=== PATIENT | female | born 1960 | race Caucasian/White ===

== ENCOUNTER 2016-06-14 17:06 | Observation (INO) | payer MEDICAID, OTHER ==
--- NOTE | 2016-06-14 17:40 | ED PDOC ---
Arrival/HPI - General Chief Complaint: Shortness Of Breath Time Seen by Provider: 06/14/16 17:38 Historian: Patient - History of Present Illness Narrative History of Present Illness (Text): 06/14/16 17:38 56 year old female presents to the emergency department complaining of period of inability to speak for 2 hours, 5 days ago, that resolved spontaneously. Patient states she woke up feeling tired. Now complaining of shortness of breath. Time/Duration: < week Symptom Onset: Gradual Symptom Course: Unchanged Modifying Factors (Text): None Associated Symptoms (Text): None Past Medical History - Provider Review Nursing Documentation Reviewed: Yes - Infectious Disease Hx of Infectious Diseases: None - Reproductive Menopause: Yes - Cardiac Hx Cardiac Disorders: No - Pulmonary Hx Respiratory Disorders: No - Neurological Hx Neurological Disorder: No - HEENT Hx HEENT Disorder: No - Renal Hx Renal Disorder: No - Endocrine/Metabolic Hx Endocrine Disorders: Yes (imparied glucose tolerance) - Hematological/Oncological Hx Blood Disorders: Yes Hx Cancer: Yes (RT.BREAST) - Integumentary Hx Dermatological Disorder: No - Musculoskeletal/Rheumatological Hx Musculoskeletal Disorders: No - Gastrointestinal Hx Gastrointestinal Disorders: Yes Hx Gastroesophageal Reflux: Yes Other/Comment: diarrhea - Genitourinary/Gynecological Hx Genitourinary Disorders: No - Psychiatric Hx Psychophysiologic Disorder: No - Surgical History Hx Appendectomy: Yes Hx Breast Biopsy: Yes (right) Hx Mastectomy: Yes (MODIFIED RADICAL WITH RECONSTRUCTION) Hx Vascular Access Device: Yes (LIFE PORT) - Anesthesia Hx Anesthesia: Yes Hx Anesthesia Reactions: No Hx Malignant Hyperthermia: No Family/Social History - Physician Review Nursing Documentation Reviewed: Yes Family/Social History: Unknown Family HX Smoking Status: Never Smoked Hx Alcohol Use: No Allergies/Home Meds Allergies/Adverse Reactions: Allergies No Known Allergies Allergy (Verified 06/14/16 17:23) Home Medications: Home Meds Medication Instructions Recorded Confirmed Aspirin [Aspirin Chewable] 81 mg PO DAILY 06/14/16 06/14/16 Calcium/Vitamin D [Oyster Shell 5,000 unit PO DAILY 06/14/16 06/14/16 Calcium/Vitamin D 500 mg-200 IU] Famotidine [Pepcid] 40 mg PO DAILY 06/14/16 06/14/16 Mv,Shorty,Min/Iron/Folic Acid/Lut 1 tab PO DAILY 06/14/16 06/14/16 [Complete Multi Tablet] Omeprazole 40 mg PO DAILY 06/14/16 06/14/16 Tamoxifen [Nolvadex] 10 mg PO DAILY 06/14/16 06/14/16 Venlafaxine [Effexor] 37.5 mg PO DAILY 06/14/16 06/14/16 Review of Systems - Physician Review All systems were reviewed & negative as marked: Yes Physical Exam - Physical Exam Narrative Physical Exam (Text): - Review of Systems Constitutional: Normal. absent: Fatigue, Weight Change, Fevers Eyes: Normal ENT: Normal Respiratory: SOB absent: Cough, Sputum Cardiovascular: Normal absent: Chest pain, Palpitations, Syncope Gastrointestinal: Normal absent: Abdominal pain, Diarrhea, Nausea, Vomiting Genitourinary: Normal. absent: Dysuria, Frequency, Hematuria Musculoskeletal: Normal. absent: Arthralgias, Back Pain, Neck Pain Skin: Normal Neurological: Period of inability to speak which has resolved absent: Focal Weakness Endocrine: Normal Hemo/Lymphatic: Normal Psychiatric: Normal - Physical exam Patient appears age appropriate, speaking full sentences without difficulty - Systems Exam Head: Present: Atraumatic, Normocephalic Pupils: Present: PERRL Extraocular Muscles: Present: EOMI Conjunctiva: Present: Normal Mouth: Present: Moist Mucous Membranes Neck: Present: Normal Range of Motion. No: MIDLINE TENDERNESS, Paraspinal Tenderness Respiratory/Chest: Present: Clear to Auscultation, Good Air Exchange. No: Respiratory Distress, Accessory Muscle Use, Tachypnic Cardiovascular: Present: Regular Rate and Rhythm, Normal S1, S2, Peripheral Pulses Present. No: Murmurs Abdomen: Present: Normal Bowel Sounds, No: Tenderness, Peritoneal Signs, Rebound, Guarding, Distention Back: Present: Normal Inspection. No: Midline Tenderness, Paraspinal Tenderness Upper Extremity: Present: Normal Inspection. No: Cyanosis, Edema Lower Extremity: Present: Normal Inspection. No: Edema Neurological: Present: GCS=15, Speech Normal, cranial nerves II through XII fully intact with no cerebellar abnormality, neuro-sensory fully intact. No focal neurological deficits. Skin: Present: Warm, Dry, Normal Color. No: Rashes Lymphatic: Present: OX3, NI, NC Psychiatric: Present: Alert, Oriented x 3, Normal Insight, Normal Concentration . Vital Signs Reviewed: Yes Vital Signs Temp Pulse Resp BP Pulse Ox 06/14/16 21:35 88 23 134/94 H 100 06/14/16 19:36 90 18 144/82 99 06/14/16 19:07 87 16 144/83 99 06/14/16 18:49 20 99 06/14/16 17:07 97.5 F L 91 H 14 156/82 H 99 Temperature: Afebrile Blood Pressure: Normal Pulse: Regular Respiratory Rate: Normal Appearance: Positive for: Well-Appearing, Non-Toxic, Comfortable Pain Distress: None Mental Status: Positive for: Alert and Oriented X 3 Medical Decision Making ED Course and Treatment: Impression: 56-year-old female with inability speak over the weekend which has fully resolved, now she has no focal neurological deficits. Patient also states that she's been having worsening shortness of breath and dyspnea and exertion for the last few days. Patient has a history of breast CA, states that she has gone through chemotherapy and radiation. Differential Diagnosis included but are not limited to: TIA versus CHF versus PE versus pneumonia Plan: Labs, imaging Progress Notes: 06/14/16 19:50 Patient in no distress, ambulating around the emergency department without difficulty EKG shows normal sinus, 100 bpm, no ST segment elevations normal intervals. Interpreted by me. Chest xray interpreted by ED physician shows no pneumothorax, no cardiomegaly, no infiltrates EXAM: CT Angiography Chest With Intravenous Contrast IMPRESSION: No pulmonary embolism is identified. No acute findings. Dictated and Authenticated by: Stef Dao MD 06/14/2016 9:08 PM Eastern Time ([place] & [place]) EXAM: CT Head Without Intravenous Contrast IMPRESSION: No CT evidence of acute intracranial abnormality. Details as above. Dictated and Authenticated by: Christina Grady MD 06/14/2016 9:18 PM Eastern Time ([place] & [place]) 06/14/16 22:[address] Roblero, recommends inpatient w/u dw Dr. Noguera, accepted pt to his service pt in no distress at this time. aware of and agrees with plan pt has no focal neurological deficits and denies any SOB/BAUTISTA/CP at this time - Lab Interpretations Lab Results: 06/14/16 18:05 06/14/16 18:05 Lab Results 06/14/16 18:05: Sodium 138, Potassium 3.8, Chloride 107, Carbon Dioxide 23, Anion Gap 12, BUN 11, Creatinine 0.5, Est GFR ( Amer) > 60, Est GFR (Non- Af Amer) > 60, Random Glucose 128 H, Calcium 9.0, Total Bilirubin 0.6, AST 28, ALT 47, Alkaline Phosphatase 111, Lactate Dehydrogenase 631, Total Creatine Kinase 59, Troponin I < 0.01, NT-Pro-B Natriuret Pep 81.0, Total Protein 7.4, Albumin 4.0, Globulin 3.4, Albumin/Globulin Ratio 1.2 06/14/16 18:05: PT 12.1 H, INR 1.12 H, APTT 25.9 06/14/16 18:05: WBC 7.8, RBC 4.33, Hgb 12.8, Hct 37.0, MCV 85.5, MCH 29.6, MCHC 34.6, RDW 12.9, Plt Count 191, MPV 10.5, Gran % 59.5, Lymph % (Auto) 32.5, Stoddard % (Auto) 6.4 H, Eos % (Auto) 1.3 L, Baso % (Auto) 0.3, Gran # 4.64, Lymph # 2.5 , Stoddard # 0.5, Eos # 0.1, Baso # 0.02 - RAD Interpretation Radiology Orders: 06/14/16 18:34 ANGIO CHEST PE PROTOCOL [CT] Stat CHEST PORTABLE [RAD] Stat 06/14/16 19:49 HEAD W/O CONTRAST [CT] Stat - Medication Orders Current Medication Orders: Discontinued Medications Iohexol (Omnipaque 350 100 Ml) Confirm Administered Dose 350 mg .ROUTE .K-MED ONE Stop: 06/14/16 19:22 - Scribe Statement The provider has reviewed the documentation as recorded by the Clare Damon Provider Scribe Attestation: All medical record entries made by the Richiibpadma were at my direction and personally dictated by me. I have reviewed the chart and agree that the record accurately reflects my personal performance of the history, physical exam, medical decision making, and the department course for this patient. I have also personally directed, reviewed, and agree with the discharge instructions and disposition. Disposition/Present on Arrival - Present on Arrival Any Indicators Present on Arrival: No History of DVT/PE: No History of Uncontrolled Diabetes: No Urinary Catheter: No History of Decub. Ulcer: No History Surgical Site Infection Following: None - Disposition Have Diagnosis and Disposition been Completed?: Yes Diagnosis: Dyspnea Disposition: HOSPITALIZED Disposition Time: 22:26 Patient Plan: Observation Condition: STABLE Referrals: Bart Noguera MD [Primary Care Provider] - Follow up with primary
[2016-06-14] MEDS ORDERED: Sodium Chloride 0.9% 1,000 ML IV STA (18:48)
[2016-06-14 18:58] LABS: ADD MANUAL DIFF? NO
[2016-06-14 19:10] LABS: BASO # 0.02 K/mm3 (0.0-2.0); BASO % 0.3 % (0.0-3.0); EOS # 0.1 (0.0-0.7); EOS % 1.3 % (1.5-5.0); GRAN # 4.64 (1.4-6.5); GRAN % 59.5 % (50.0-68.0); LYMPH # 2.5 (1.2-3.4); LYMPH % 32.5 % (22.0-35.0); MEAN CELL VOLUME 85.5 fL (80.0-105.0); MEAN CORPUSCULAR HEMOGLOBIN 29.6 pg (25.0-35.0); MEAN CORPUSCULAR HGB CONC 34.6 g/dl (31.0-37.0); MEAN PLATELET VOLUME 10.5 fl (7.0-11.0); MONO # 0.5 (0.1-0.6); MONO % 6.4 % (1.0-6.0); PLATELET COUNT 191 10^3/uL (120.0-450.0); RED CELL DISTRIBUTION WIDTH 12.9 % (11.5-14.5); WHITE BLOOD COUNT 7.8 10^3/ul (4.5-11.0)
[2016-06-14 19:16] LABS: ALB/GLOB RATIO 1.2 (1.1-1.8); ALKALINE PHOSPHATASE 111 U/L (38-133); ALT/SGPT 47 U/L (7-56); AST/SGOT 28 U/L (15-39); BILIRUBIN,TOTAL 0.6 mg/dL (0.2-1.3); BLOOD UREA NITROGEN 11 mg/dL (7-21); CARBON DIOXIDE 23 mmol/L (21-33); CHLORIDE 107 mmol/L (98-107); GFR AFRICAN-AMERICAN > 60; GLUCOSE,RANDOM 128 mg/dL (70-110); INR 1.12 (0.93-1.08); PARTIAL THROMBOPLASTIN TIME 25.9 Seconds (23.7-30.8); POTASSIUM 3.8 mmol/L (3.6-5.0); SODIUM 138 mmol/L (132-148); TOTAL PROTEIN 7.4 g/dL (5.8-8.3)
[2016-06-14] MEDS ORDERED: Iohexol 350 MG/100 ML VIAL ONE ×2 (19:21→23:41)
[2016-06-14 19:29] LABS: TROPONIN I < 0.01 ng/mL
--- NOTE | 2016-06-14 21:18 | CT ---
EXAM: CT Head Without Intravenous Contrast CLINICAL HISTORY: 56 years old, female; Pain; Headache; Headache not specified; Additional info: TIA TECHNIQUE: Axial computed tomography images of the head/brain without intravenous contrast. This CT exam was performed using one or more of the following dose reduction techniques: automated exposure control, adjustment of the mA and/or kV according to patient size, and/or use of iterative reconstruction technique. COMPARISON: No relevant prior studies available. FINDINGS: Brain: Evidence of atrophy. No hemorrhage. No significant white matter disease. No edema. Ventricles: No hydrocephalus. Bones: Skull is intact. Sinuses: No acute sinusitis. Mastoid air cells: No mastoid effusion. IMPRESSION: No CT evidence of acute intracranial abnormality. Details as above.
[2016-06-15 01:14] VITALS: BMI 36.3
[2016-06-15 07:23] VITALS: BP 117/80; PULSE 80; RESP 18; TEMP 98; O2SAT 98
--- NOTE | 2016-06-15 07:47 | CT ---
PROCEDURE: CT Chest with contrast (Pulmonary Angiogram) HISTORY: r/o PE COMPARISON: None available. TECHNIQUE: Axial computed tomography images were obtained of the chest in the pulmonary arterial phase of enhancement. Coronal and sagittal reformatted images were created and reviewed. Intravenous contrast dose: 100 mL Omnipaque 350 Radiation dose: Total exam DLP = 758.64 mGy-cm. This CT exam was performed using one or more of the following dose reduction techniques: Automated exposure control, adjustment of the mA and/or kV according to patient size, and/or use of iterative reconstruction technique. FINDINGS: PULMONARY ARTERIES: There are no central filling defects in the pulmonary arteries to suggest acute pulmonary embolism. AORTA: Normal in caliber. No thoracic aortic aneurysm or aortic dissection. LUNGS: The lungs are clear. No nodule, mass or pulmonary consolidation. PLEURAL SPACES: All Unremarkable. No effusion orpneumothorax. HEART: No cardiomegaly. No significant pericardial effusion. LYMPH NODES: No lymphadenopathy. BONES, CHEST WALL: Within normal limits for the patient's age. No fracture or destructive lesion OTHER FINDINGS: Fatty infiltration of the liver. Right breast saline implant. IMPRESSION: No evidence of acute pulmonary embolism. Clear lungs. A preliminary report was provided by [facility].
--- NOTE | 2016-06-15 08:44 | RAD ---
HISTORY: Shortness of breath COMPARISON: No prior. FINDINGS: The left MediPort terminates at the cavoatrial junction. LUNGS: The lungs are well inflated and clear. PLEURA: No significant pleural effusion identified, no pneumothorax apparent. CARDIOVASCULAR: Normal. OSSEOUS STRUCTURES: No significant abnormalities. VISUALIZED UPPER ABDOMEN: Normal. OTHER FINDINGS: None. IMPRESSION: No active pulmonary disease.
[2016-06-15] MEDS ORDERED: IRON PO SCH (10:00)
[2016-06-15] MEDS ORDERED: Pantoprazole 40 mg EC Tab PO SCH (10:00)
[2016-06-15] MEDS ORDERED: CALCIUM PO SCH (10:00)
[2016-06-15] MEDS ORDERED: VITAMIN D PO SCH (10:00)
[2016-06-15] MEDS ORDERED: LUT PO SCH (10:00)
[2016-06-15] MEDS ORDERED: MV CAL MIN PO SCH (10:00)
[2016-06-15] MEDS ORDERED: [UNRECOGNIZED DRUG - OTHER] PO SCH (10:00)
[2016-06-15] MEDS ORDERED: FOLIC ACID PO SCH (10:00)
--- NOTE | 2016-06-15 11:14 | CON ---
DATE: 06/15/2016 REFERRING PHYSICIAN: Dr. Noguera. REASON FOR CONSULT: Shortness of breath. HISTORY OF PRESENT ILLNESS: This is a -rzud-isy female with a history of breast cancer, mastect latoya, radiation and chemotherapy in the past, had symptom of epigastric discomfort and pain on a malachi n inhibitor. Yesterday, comes in because again had symptom of shortness of breath, and epigastric di scomfort. No vomiting, no hematuria, no diarrhea, no leg pain or leg swelling. PAST MEDICAL HISTORY: Breast cancer, history of gastroesophageal reflux disease, has a Port-A-Cath c atheter. ALLERGIES: None known. SOCIAL HISTORY: Nonsmoker, nondrinker. MEDICATIONS: He is on aspirin, vitamin D and calcium, Pepcid 40 mg daily, Protonix 40 mg daily, tamo xifen is at 0 mg daily, and Effexor 37.5 mg daily. FAMILY HISTORY: Positive for colon cancer, lung cancer, hypertension, and diabetes. MEDICATIONS AT HOSPITAL: Nothing is added so far. REVIEW OF SYSTEMS: No headache, no rhinitis. Has some symptom of epigastric discomfort. Dr. Noguera started on proton inhibitor as an outpatient. When she was with her family yesterday has some chest nonspecific discomfort with shortness of breath, came to the Emergency Room. At present, there is n o nausea, no vomiting, no diarrhea, no leg pain or leg swelling. PHYSICAL EXAMINATION: GENERAL: Lying in the bed in no acute distress. VITAL SIGNS: Temp is 98, heart rate is 80, respiratory rate is 20, blood pressure 117/80, pulse ox 9 8% on room air. HEENT: Moist mucous membrane. Crowded airway. NECK: Supple. No JVD. LUNGS: Has a fair airflow with few rhonchi. HEART: S1, S2. ABDOMEN: Soft, mild epigastric discomfort on palpation. EXTREMITIES: There is no edema. NEUROLOGIC: Awake, alert, follows simple commands. LABORATORY DATA: Shows hemoglobin 12.8, hematocrit 37.7, WBC 7.8, platelet is 191. INR 1.12, PTT is 26. Sodium 138, potassium 2.8, chloride 107, bicarbonate 23, BUN 11, creatinine 0.5, glucose 128, c alcium 8.0, total bilirubin 0.6, AST 28, ALT 47, alkaline phos is 111. Troponin is less than 0.01. Albumin is 4.0. Had a CT of the chest done, which is negative for pulmonary embolism and clear lungs . Also had a CT scan of the head done in the Emergency Room, which shows no evidence of acute abnorm ality. IMPRESSION AND PLAN: History of breast cancer requiring radiation and chemotherapy in the past. May have a gastritis, gastroesophageal reflux disease. Agree with Dr. Noguera. We will continue Protoni x. Keep head elevated at 45 degrees. May add Carafate. Gastric prophylaxis. SCD to lower extremit y. Being evaluated by cardiology, EEG, and neurology. Thank you. Will follow with you. Jacquelin Rust MD cc: [id number] TT: 06/15/2016 11:13:37 Confirmation # [id number] Dictation # [id number] jn
--- NOTE | 2016-06-15 13:49 | CON ---
DATE: 06/15/2016 The patient is in room 365, bed 1. REASON FOR CONSULTATION: Shortness of breath. HISTORY OF PRESENT ILLNESS: The patient is a 56-year-old female admitted with a history that 5 days ago had a period that she was not able to speak for about 2 hours, which resolved spontaneously. Now, patient states that since last 2 days, she has shortness of breath. She describes shortness of breath as like a deep sigh. She says on exertion, she does not have any chest pain or shortness of breath. She said once in a while, she has to take a very deep breath like deep sigh and that is her complaint. She has known case of cancer of breast with mastectomy and has been getting chemotherapy and radiation. Denies any other history of medical disease. She has a history of epigastric distress, for which she takes omeprazole once a day. PAST MEDICAL HISTORY: CA of the breast, Port-A-Cath insertion, appendectomy, surgery for CA of the breast, mastectomy. PERSONAL HISTORY: Denies smoking, denies drinking. ALLERGIES: Denies any allergies. MEDICATIONS AT HOME: The patient is on tamoxifen, omeprazole, aspirin vitamin D. FAMILY HISTORY: Positive for diabetes, hypertension and malignancy. REVIEW OF SYSTEMS: All the systems reviewed, positives mentioned in the history , others were negative. PHYSICAL EXAMINATION: VITAL SIGNS: Blood pressure 117/80, respirations 18, pulse 80, temperature 98.0. HEAD: Normocephalic. EYES: Pupils normal. Conjunctivae normal. NOSE AND THROAT: Normal. NECK: JVP low. Carotid equal. THORAX: AP diameter normal. LUNGS: Clear. CARDIOVASCULAR: S1, S2. ABDOMEN: Soft, no tenderness, no organomegaly. EXTREMITIES: No clubbing, no cyanosis. LABORATORIES: WBC 7.8, hemoglobin 12.8, hematocrit 37.0, platelets 191. Sodium 138, potassium 3.8, BUN 11, creatinine 0.5. Total bilirubin, AST, ALT normal. Troponin less than 0.01. Chest x-ray: Lungs are clear, Port-A-Cath present. EKG showed regular sinus rhythm, Q and C can be a normal variant. CT of the chest is also negative, no evidence of pulmonary embolism. CAT scan of head is also normal. DIAGNOSES: Shortness of breath, complaints very nonspecific, gastroesophageal reflux disease, history of cancer breast, mastectomy followed by chemo and radiation therapy, episode of aphasia 5 days ago, relieved spontaneously. PLAN: Neurology consult has been already requested to evaluate her episode of aphasia. From cardiac point of view, patient's symptoms are very nonspecific about shortness of breath, so patient wants to go home today. She is supposed to go to [place] tomorrow and she wants to go home today and she promised that she will do an echo and a stress test as outpatient and she will see Dr. Noguera in his office for echo and she will come to our office and make arrangements for stress test. In the meantime, neurology evaluation is pending. I also advised patient to lose weight. Continue aspirin 81 mg p.o. daily. The patient is on tamoxifen 10 mg p.o. daily, Pepcid 40 mg p.o. daily. The patient is also on Protonix 40 daily, Effexor 37.5 mg p.o. daily. We will follow with you and continue present therapy. Jacquelin Tellez MD cc: [phone] TT: 06/15/2016 13:49:11 Confirmation # [id number] Dictation # [id number] en MTDD
--- NOTE | 2016-06-15 17:16 | CARD ---
APPROVED REPORT EKG Measurement Heart [id number] <Conclusion> Normal sinus rhythm Normal ECG
--- NOTE | 2016-06-15 21:47 | CON ---
DATE: 06/15/2016 The patient is in room 365, bed 1. REASON FOR CONSULTATION: The patient with stage II carcinoma of the breast, status post mastectomy, status post chemo and radiation for an ER/OR positive, stage II breast cancer, had radiation for more than ____ positive. 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 No nausea, no vomiting, no diarrhea, no leg pain, no neck swelling. PAST MEDICAL HISTORY: Significant for stage II carcinoma of the breast, history of gastroesophageal reflux, has a port on the right chest wall. ALLERGIES: No allergies. SOCIAL HISTORY: The patient is a nonsmoker, nondrinker. CURRENT MEDICATIONS: Reviewed. She is on aspirin, vitamin D, calcium, Pepcid 40 daily, Protonix 40 daily, tamoxifen 10 mg b.i.d., and Effexor 37.5 mg daily for swelling. FAMILY HISTORY: Positive for colon cancer, lung cancer, hypertension and diabetes. REVIEW OF SYSTEMS: Denies any history of headaches, rhinitis. Has symptoms of epigastric discomfort . She has seen Dr. Noguera recently who started her on a PPI in addition to the Pepcid. When she brendon t with the family yesterday, patient had some anxiety issues as well and some nonspecific chest disco mfort, could not breathe, shortness of breath, came to the Emergency Room after talking to me and adv ised her to go to the ER because my concern was that patient could have a PE while on tamoxifen postc hemotherapy. No nausea, no vomiting, no diarrhea. No neck pain. PHYSICAL EXAMINATION: GENERAL: The patient is examined in the bed, lying in bed, in no acute distress. HEENT: Head is normocephalic, atraumatic. Conjunctivae pale. Sclerae are anicteric. Pupils are eq ually reactive to light and accommodation. NECK: Reveals no adenopathy. No jugular venous distention noted. LUNGS: Clear to percussion and auscultation. HEART: Reveals S1 and S2 to be normal. No gallop or murmur is heard. The patient is status post ma stectomy with reconstruction ____ reconstruction on the right breast is still pending for creation of the ____ nipple. Left breast is unremarkable. ABDOMEN: Soft, nontender. Liver and spleen are not palpable. No other masses are noted. No reboun d, rigidity or guarding is noted. EXTREMITIES: No cyanosis, clubbing, or edema. NEUROLOGIC: Higher functions are normal. No focal deficits are noted. LABORATORY DATA: Reveals hemoglobin of 12.8, hematocrit 37, platelet count 191. INR is 1.2. Electro lytes unremarkable. Troponin is 0.01. Albumin is 4. The patient had a CT of the chest with contras t, like a CT angio which was negative for pulmonary embolism. CT of the head was also done in the Em ergency Room because there were a few moments where she could not speak and showed no evidence of any acute abnormalities. ASSESSMENT NOTES AND PLAN: Etiology of the shortness of breath could be gastroesophageal reflux dise ase, it could be anxiety. Workup at this point is negative. I told her to resume the tamoxifen, sta y on the aspirin, continue the PPI and the H2 inhibitors and to follow up as an outpatient. I discus sed the case with Dr. Noguera as well. Routine post exam instructions have been given to the patient. The patient and mom are leaving for [place] tomorrow. I told her to keep in touch. They will b e back to see us in about 2 weeks. The patient and her mom have family out there in [place] and t he trip was planned quite some time ahead. Nadege Roblero MD cc: [id number] TT: 06/15/2016 21:47:17 Confirmation # [id number] Dictation # [id number]
--- NOTE | 2016-06-16 05:14 | HP ---
The patient is a 56-year-old female who came in with a period of . HISTORY OF PRESENT ILLNESS: This is a 56-year-old female with history of breast cancer treated with chemoradiation and had implants. She came in to the Department of the Emergency Room because history of inability to talk for 2 hours, 5 days ago that resolved spontaneously and now she is feeling tire d and she complained of short of breath and says has some short of breath. No chest pain. PAST MEDICAL HISTORY: As I mentioned above, history of breast CA, treated surgically radiation, chem o and breast implants, obesity. ALLERGIES: No known allergies. SOCIAL HISTORY: She never smoked. No drinking, no illicit drugs. REVIEW OF SYSTEMS: She complained of knee pain sometimes. HOME MEDICATIONS: She does takes calcium and vitamin D, aspirin, Effexor, she takes tamoxifen, multi vitamins and Pepcid. PHYSICAL EXAMINATION: VITAL SIGNS: Stable. Temperature 98, heart rate 80, blood pressure is 117/80, respirations 18, satu ration 98% on room air. HEAD AND NECK: Normal. No JVD, no thyromegaly. CHEST: Clear, good entry. CARDIAC: First and second sounds are normal. ABDOMEN: Soft, nontender. EXTREMITIES: No edema. NEUROLOGIC: Normal. LABORATORY DATA: PT/INR 12.1, INR 1.12, PTT 25.9. The patient also had CBC with white count 7.8, he moglobin 12.8, hematocrit 37, and platelets 191. Chemistry: Sodium 138, potassium 3.8, chloride 107 , bicarbonate 23, BUN 18, creatinine 0.5, glucose 128. Liver function test is normal. Troponin is n egative. Albumin and globulin normal. CPK is normal. Troponin is negative. The patient had a CT o f the head, which was negative. The patient had a CT chest angiogram which was negative for PE. IMPRESSION AND PLAN: A 56-year-old female who came in with chest discomfort, history of period of in ability to talk, will admit the patient for observation, get a neuro consult with Dr. Shore, will ge t pulmonary consult with Dr. Rust, and cardiology consult with Dr. Krause. We will follow their reina mmendations and the patient advised also to continue aspirin every day. Continue Pepcid 40 mg daily. We will discuss with oncology, Dr. Roblero, the case. If the patient is clinically stable and eval uated by specialist, she may need to go home. The patient wants to travel to [place] with her par ents. She has a ticket for tomorrow and she has to leave. If okay with the specialist, we will disc harge the patient if cleared by them. Bart Noguera MD cc: [id number] TT: 06/16/2016 05:14:05 mn
== END 2016-06-15 15:32 | disposition home or self-care (01) ==
LOC: ED 17:06 → ERH 22:27 → 3RNO 06-15 00:03
PROVIDERS: ADMIT Internal Medicine; ATTEND Internal Medicine
DX: K21.9 Gastro-esophageal reflux disease without esophagitis (principal); F41.9 Anxiety disorder, unspecified; R06.02 Shortness of breath; R06.00 Dyspnea, unspecified; E66.9 Obesity, unspecified; Z68.36 Body mass index [BMI] 36.0-36.9, adult; Z90.10 Acquired absence of unspecified breast and nipple; Z79.810 Long term (current) use of selective estrogen receptor modulators (SERMs); Z79.82 Long term (current) use of aspirin; Z92.21 Personal history of antineoplastic chemotherapy; Z85.3 Personal history of malignant neoplasm of breast; Z98.82 Breast implant status; Z17.0 Estrogen receptor positive status [ER+]
CPT/HCPCS: 70450; 71010; 71275; 80053; 82550; 83615; 83880; 84484; 85025; 85610; 85730; 87040; 93005; 99285; G0378; Q9967

== ENCOUNTER 2018-05-09 11:47 | Outpatient (CLI) | payer OTHER | END 2018-05-09 11:48 | disposition home or self-care (01) | LOC: LAB 11:47 ==